=== PATIENT | male | born 1965 | race American Indian/Alaskan Native ===

== ENCOUNTER 2017-05-14 11:25 | Emergency (ER) | payer OTHER ==
[2017-05-14 11:26] VITALS: BMI 25.7
[2017-05-14 11:36] VITALS: RESP 20; TEMP 100.6
--- NOTE | 2017-05-14 11:39 | C.PDOC ---
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 LAST DOSE WAS 3 DAYS AGO. PENDING PMD FU 05/16. 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 NO ACTIVE PSYCHOSIS, INTOX Time Seen by Provider: 05/14/17 11:38 Chief Complaint (Nursing): Anxiety History Per: Patient History/Exam Limitations: no limitations Current Symptoms Are (Timing): Still Present Past Medical History Reviewed: Historical Data, Nursing Documentation, Vital Signs Vital Signs: Last Vital Signs Temp 100.6 F H 05/14/17 11:29 Pulse 81 05/14/17 12:08 Resp 20 05/14/17 12:08 BP 143/89 05/14/17 12:08 Pulse Ox 100 05/14/17 12:08 - Medical History PMH: Anxiety Surgical History: Hernia Repair - [facility] Procedures INJECT/INFUSE NEC (10/10/13) Family History: States: No Known Family Hx - Social History Hx Tobacco Use: Yes (1/2 PK/DAY) Hx Alcohol Use: Yes Hx Substance Use: No - Immunization History Hx Tetanus Toxoid Vaccination: No Hx Influenza Vaccination: Yes (09/2016) Hx Pneumococcal Vaccination: No Review Of Systems Except As Marked, All Systems Reviewed And Found Negative. 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 NO ACTIVE PSYCHOSIS, INTOX) Skin: Warm, Dry, No Rash Eye(s): bilateral: Normal Inspection Lips: Normal Appearing Neck: Normal ROM Cardiovascular: Rhythm Regular, No Murmur Respiratory: Normal Breath Sounds, No Accessory Muscle Use Extremity: Normal ROM Neurological/Psych: Oriented x3 ED Course And Treatment O2 Sat by Pulse Oximetry: 99 Progress - Re-Evaluation Re-evaluation Note: 05/14/17 11:39 SP CRISIS SEEMA EVAL. PT CLEARED FOR OUTPT - Data Reviewed Data Reviewed: Old records Disposition Counseled Patient/Family Regarding: Diagnosis, Need For Followup, Rx Given - Disposition Referrals: YOUR,PMD [Other] Disposition: HOME/ ROUTINE Disposition Time: 11:50 Condition: IMPROVED Prescriptions: ALPRAZolam [Xanax] 0.25 mg PO Q6 PRN #2 tab PRN Reason: Anxiety Instructions: Medicine Refill (ED) Forms: [employer] (Micronesian) - Clinical Impression Clinical Impression: Anxiety, Medication refill - Scribe Statement The provider has reviewed the documentation as recorded by the Scribe (Kemar Yost) All medical record entries made by the Scribe were at my direction and personally dictated by me. I have reviewed the chart and agree that the record accurately reflects my personal performance of the history, physical exam, medical decision making, and the department course for this patient. I have also personally directed, reviewed, and agree with the discharge instructions and disposition.
[2017-05-14 12:10] VITALS: BP 143/89; PULSE 81
[2017-05-14 12:32] VITALS: O2SAT 99
== END 2017-05-14 12:10 | disposition home or self-care (01) ==
LOC: C.ER 11:25
DX: F41.9 Anxiety disorder, unspecified (principal); Z76.0 Encounter for issue of repeat prescription

== ENCOUNTER 2017-06-25 06:12 | Emergency (ER) | payer OTHER ==
[2017-06-25 06:12] VITALS: BMI 25.7
--- NOTE | 2017-06-25 06:27 | C.PDOC ---
Chief Complaint (Nursing): Abnormal Skin Integrity Past Medical History Vital Signs: Last Vital Signs Temp 98.6 F 06/25/17 06:21 Pulse 93 H 06/25/17 06:21 Resp 20 06/25/17 06:21 BP 158/89 H 06/25/17 06:21 Pulse Ox 97 06/25/17 06:21 - Medical History PMH: Anxiety Surgical History: Hernia Repair - [facility] Procedures INJECT/INFUSE NEC (10/10/13) Family History: States: Unknown Family Hx - Social History Hx Tobacco Use: Yes (1/2 PK/DAY) Hx Alcohol Use: Yes Hx Substance Use: No - Immunization History Hx Tetanus Toxoid Vaccination: No Hx Influenza Vaccination: Yes (09/2016) Hx Pneumococcal Vaccination: No ED Course And Treatment O2 Sat by Pulse Oximetry: 97 Disposition - Disposition
[2017-06-25 06:30] VITALS: BP 158/89; PULSE 93; RESP 20; TEMP 98.6; O2SAT 97
[2017-06-25] MEDS ORDERED: DiphenhydrAMINE 50 mg/ml Inj IM STA (07:16)
--- NOTE | 2017-06-25 07:19 | C.PDOC ---
History Of Present Illness 52 yo male c/o itchy rash for 1 week. Pt notes "it feels like something is crawling under my skin." States that he lives with his aunt who does not have the rash. No known allergens. No difficulty breathing, no difficulty swallowing , no throat/tongue/lip swelling. No h/o similar symptoms. Has not tried any medication. Time Seen by Provider: 06/25/17 06:58 Chief Complaint (Nursing): Abnormal Skin Integrity History Per: Patient History/Exam Limitations: no limitations Onset/Duration Of Symptoms: Days Current Symptoms Are (Timing): Still Present Past Medical History Vital Signs: Last Vital Signs Temp 98.6 F 06/25/17 06:21 Pulse 93 H 06/25/17 06:21 Resp 20 06/25/17 06:21 BP 158/89 H 06/25/17 06:21 Pulse Ox 97 06/25/17 07:19 - Medical History PMH: Anxiety Surgical History: Hernia Repair - [facility] Procedures INJECT/INFUSE NEC (10/10/13) Family History: States: Unknown Family Hx - Social History Hx Tobacco Use: Yes (1/2 PK/DAY) Hx Alcohol Use: Yes Hx Substance Use: No - Immunization History Hx Tetanus Toxoid Vaccination: No Hx Influenza Vaccination: Yes (09/2016) Hx Pneumococcal Vaccination: No Review Of Systems Except As Marked, All Systems Reviewed And Found Negative. Constitutional: Negative for: Fever ENT: Negative for: Mouth Swelling, Throat Swelling Cardiovascular: Negative for: Chest Pain Respiratory: Negative for: Cough, Shortness of Breath Skin: Positive for: Rash Physical Exam - Physical Exam Appears: Well, Non-toxic, No Acute Distress Skin: Warm, Dry, Rash ((+) diffuse bit like papules in different healing stages and scabbing, no urticaria, no vesicles, no discharge, no increased warmth ) Head: Atraumatic, Normacephalic Eye(s): bilateral: Normal Inspection, PERRL, EOMI Nose: Normal Oral Mucosa: Moist Throat: Normal, No Erythema, No Exudate Neck: Normal, Normal ROM, Supple Chest: Symmetrical Cardiovascular: Rhythm Regular Respiratory: Normal Breath Sounds Gastrointestinal/Abdominal: Normal Exam Back: Normal Inspection Extremity: Normal ROM Neurological/Psych: Oriented x3, Normal Speech ED Course And Treatment O2 Sat by Pulse Oximetry: 97 Disposition - Disposition Disposition: HOME/ ROUTINE Disposition Time: 07:17 Condition: STABLE Additional Instructions: Follow up with your primary medical doctor or clinic in 2-5 days for further evaluation. Take medications as prescribed. Return to the emergency department at any time if symptoms persist or worsen. Prescriptions: DiphenhydrAMINE [Benadryl] 25 mg PO Q6 #20 cap Permethrin 5% [Permethrin 5% Cream] 1 applic TOP ONCE #1 tube Instructions: Acute Rash (ED) Forms: [employer] (Divehi) - Clinical Impression Clinical Impression: Rash
[2017-06-25] MEDS ORDERED: DiphenhydrAMINE 50 mg/ml Inj ONE (07:33)
== END 2017-06-25 07:38 | disposition home or self-care (01) ==
LOC: C.ER 06:12
DX: R21 Rash and other nonspecific skin eruption (principal)
CPT/HCPCS: 96372; 99283; J1200

== ENCOUNTER 2017-09-02 23:43 | Emergency (ER) | payer OTHER ==
[2017-09-02 23:44] VITALS: BMI 25.7
[2017-09-03 00:09] VITALS: BP 130/79; PULSE 105; RESP 20; TEMP 98.4; O2SAT 97
--- NOTE | 2017-09-03 00:28 | C.PDOC ---
History Of Present Illness 52 year old male is brought to the ED via EMS c/o back, shoulder, and ankle pain. Upon arrival to the ED patient is requesting food and refused to answer any other questions. Patient denies weakness, numbness, incontinence, saddle anesthesia, neck pain, headache. Time Seen by Provider: 09/03/17 00:17 Chief Complaint (Nursing): Back Pain History Per: Patient, EMS History/Exam Limitations: no limitations Onset/Duration Of Symptoms: Hrs Current Symptoms Are (Timing): Still Present Quality Of Discomfort: "Pain" Previous Symptoms: Back Pain Associated Symptoms: None Exacerbating Factor(s): Nothing Recent travel outside of the [place]: No Additional History Per: Patient Past Medical History Reviewed: Historical Data, Nursing Documentation, Vital Signs Vital Signs: Last Vital Signs Temp 98.4 F 09/03/17 00:03 Pulse 105 H 09/03/17 00:03 Resp 20 09/03/17 00:03 BP 130/79 09/03/17 00:03 Pulse Ox 97 09/03/17 02:19 - Medical History PMH: Anxiety Surgical History: Hernia Repair - [facility] Procedures INJECT/INFUSE NEC (10/10/13) Family History: States: Unknown Family Hx - Social History Hx Tobacco Use: Yes (1/2 PK/DAY) Hx Alcohol Use: Yes Hx Substance Use: No - Immunization History Hx Tetanus Toxoid Vaccination: No Hx Influenza Vaccination: Yes (09/2016) Hx Pneumococcal Vaccination: No Review Of Systems Constitutional: Negative for: Fever, Chills Cardiovascular: Negative for: Chest Pain, Palpitations Respiratory: Negative for: Cough, Shortness of Breath Gastrointestinal: Negative for: Nausea, Vomiting, Abdominal Pain Musculoskeletal: Positive for: Shoulder Pain, Back Pain, Leg Pain Skin: Negative for: Rash Neurological: Negative for: Weakness, Numbness, Headache Physical Exam - Physical Exam Appears: Non-toxic, No Acute Distress Skin: Normal Color, Warm, Dry Head: Atraumatic, Normacephalic Nose: No Discharge, No Deformity Oral Mucosa: Moist Neck: Normal ROM, Supple Chest: Symmetrical Cardiovascular: Rhythm Regular, No Murmur Respiratory: Normal Breath Sounds, No Rales, No Rhonchi, No Wheezing Gastrointestinal/Abdominal: Soft, No Tenderness Back: Normal Inspection, No CVA Tenderness, No Vertebral Tenderness Extremity: Normal ROM, No Pedal Edema, No Calf Tenderness, No Deformity, No Swelling Neurological/Psych: Oriented x3, Normal Speech, Normal Cognition Gait: Steady ED Course And Treatment O2 Sat by Pulse Oximetry: 97 (On RA) Pulse Ox Interpretation: Normal Disposition Counseled Patient/Family Regarding: Diagnosis, Need For Followup - Disposition Referrals: [facility] [Outside] Disposition: HOME/ ROUTINE Disposition Time: 00:26 Condition: STABLE Additional Instructions: Please follow up in clinic Return if needed for any emergencies Prescriptions: Ibuprofen [Motrin] 1 tab PO TID PRN #20 tab PRN Reason: Pain Instructions: Musculoskeletal Pain (ED) Forms: [employer] (Slovenian) - Clinical Impression Clinical Impression: Musculoskeletal pain - PA / 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 - Scribe Statement The provider has reviewed the documentation as recorded by the Scribe Amado Yap All medical record entries made by the Scribe were at my direction and personally dictated by me. I have reviewed the chart and agree that the record accurately reflects my personal performance of the history, physical exam, medical decision making, and the department course for this patient. I have also personally directed, reviewed, and agree with the discharge instructions and disposition.
== END 2017-09-03 00:42 | disposition home or self-care (01) ==
LOC: C.ER 23:43
DX: M79.1 Myalgia (principal); F17.210 Nicotine dependence, cigarettes, uncomplicated

== ENCOUNTER 2017-10-07 17:51 | Emergency (ER) | payer SELFPAY ==
[2017-10-07 17:52] VITALS: BMI 25.7
--- NOTE | 2017-10-07 20:51 | C.PDOC ---
History Of Present Illness 52 y/o male presents to ED by EMS for public intoxication. Pt was threatening staff. Pt was has had many similar prior evaluations. Denies any physical complaints. (Song Guo) History Per: Patient History/Exam Limitations: no limitations Onset/Duration Of Symptoms: Hrs Current Symptoms Are (Timing): Still Present Suicide/Self Injury Attempted (Context): None Modifying Factor(s): Alcohol Associated Symptoms: Anger. denies: Suicidal Thoughts, Suicidal Plan Involuntary Hold By: None Recent travel outside of the [place]: No Time Seen by Provider: 10/07/17 18:41 Chief Complaint (Nursing): Substance Abuse Past Medical History Reviewed: Historical Data, Nursing Documentation, Vital Signs - Medical History PMH: Anxiety Surgical History: Hernia Repair Family History: States: Unknown Family Hx - Social History Hx Tobacco Use: Yes (1/2 PK/DAY) Hx Alcohol Use: Yes Hx Substance Use: No - Immunization History Hx Tetanus Toxoid Vaccination: No Hx Influenza Vaccination: Yes (09/2016) Hx Pneumococcal Vaccination: No Vital Signs: Last Vital Signs Temp 99.1 F 10/08/17 05:03 Pulse 88 10/08/17 05:03 Resp 18 10/08/17 05:03 BP 121/76 10/08/17 05:03 Pulse Ox 96 10/08/17 05:03 - [facility] Procedures INJECT/INFUSE NEC (10/10/13) Review Of Systems Constitutional: Negative for: Fever Skin: Negative for: Rash, Bruising Neurological: Negative for: Weakness, Numbness Psych: Negative for: Suicidal ideation Physical Exam - Physical Exam Appears: Well, Non-toxic, Other (ETOH on breath) Skin: Normal Color, Warm, Dry Head: Atraumatic, Normacephalic Eye(s): bilateral: Normal Inspection Oral Mucosa: Moist Neck: Supple Chest: Symmetrical, No Tenderness Cardiovascular: Rhythm Regular Respiratory: Normal Breath Sounds, No Decreased Breath Sounds, No Rales, No Rhonchi, No Wheezing Gastrointestinal/Abdominal: Soft, No Tenderness, No Distention Extremity: Normal ROM Extremity: Bilateral: Normal Color And Temperature, Normal ROM Neurological/Psych: Oriented x3, Normal Speech, Normal Cognition ED Course And Treatment O2 Sat by Pulse Oximetry: 98 (RA ) Pulse Ox Interpretation: Normal Reevaluation Time: 01:00 Reassessment Condition: Improved Medical Decision Making Medical Decision Making: Pt was difficult to redirect. Offered 4 point restraints but patient declined and became compliant. 0100: typical alcohol intox, stable, calm signed over to overnight MD (Song Guo) Disposition - Disposition Disposition Time: 01:00 - Disposition Referrals: Alcoholics Anonymous [Outside] Disposition: HOME/ ROUTINE Condition: GOOD Instructions: Abuse of Alcohol (ED) Forms: [employer] (Bengali) Print Language: POLISH - Clinical Impression Clinical Impression: Alcohol abuse - Scribe Statement The provider has reviewed the documentation as recorded by the Scribe - Scribe Statement Megan Kebede All medical record entries made by the Scribe were at my direction and personally dictated by me. I have reviewed the chart and agree that the record accurately reflects my personal performance of the history, physical exam, medical decision making, and the department course for this patient. I have also personally directed, reviewed, and agree with the discharge instructions and disposition. (Song Guo) Physician Patient Turnover Patient Signed Over To: Mary Kemp Handoff Comments: dispo in AM when sober
[2017-10-08 05:04] VITALS: BP 121/76; PULSE 88; RESP 18; TEMP 99.1; O2SAT 96
== END 2017-10-08 05:36 | disposition home or self-care (01) ==
LOC: C.ER 17:51
DX: F10.10 Alcohol abuse, uncomplicated (principal); Y90.9 Presence of alcohol in blood, level not specified

== ENCOUNTER 2018-04-28 06:03 | Emergency (ER) | payer MEDICAID, OTHER ==
[2018-04-28 06:04] VITALS: BMI 24.3
[2018-04-28 06:16] VITALS: O2SAT 100
--- NOTE | 2018-04-28 06:16 | C.PDOC ---
History Of Present Illness Patient brought in via EMS after being found intoxicated in public. Denies physical complaints at this time. Time Seen by Provider: 04/28/18 06:16 Chief Complaint (Nursing): Substance Abuse History Per: Patient, EMS History/Exam Limitations: no limitations Onset/Duration Of Symptoms: Hrs Current Symptoms Are (Timing): Still Present Suicide/Self Injury Attempted (Context): None Modifying Factor(s): Alcohol Severity: None Pain Scale Rating Of: 0 Associated Symptoms: denies: Depression, Suicidal Thoughts Recent travel outside of the [place]: No Past Medical History Reviewed: Historical Data, Nursing Documentation, Vital Signs Vital Signs: Last Vital Signs Temp 97.6 F 04/28/18 06:11 Pulse 97 H 04/28/18 06:11 Resp 20 04/28/18 06:11 BP 106/74 04/28/18 06:11 Pulse Ox 100 04/28/18 06:26 - Medical History PMH: Anxiety Denies: HIV, HTN, Seizures, Sexually Transmitted Disease Surgical History: Hernia Repair - [facility] Procedures INJECT/INFUSE NEC (10/10/13) Family History: States: No Known Family Hx - Social History Hx Tobacco Use: Yes (1/2 PK/DAY) Hx Alcohol Use: Yes (vodka) Hx Substance Use: No - Immunization History Hx Tetanus Toxoid Vaccination: No Hx Influenza Vaccination: Yes (09/2016) Hx Pneumococcal Vaccination: No Review Of Systems Constitutional: Negative for: Fever, Chills Cardiovascular: Negative for: Chest Pain, Palpitations Respiratory: Negative for: Cough, Shortness of Breath Gastrointestinal: Negative for: Nausea, Vomiting Physical Exam - Physical Exam Appears: Non-toxic, Other (ETOH on breath, no sign of injury) Skin: Warm, Dry Head: Normacephalic Oral Mucosa: Moist Chest: Symmetrical, No Tenderness Cardiovascular: Rhythm Regular Respiratory: No Rales, No Rhonchi, No Wheezing Gastrointestinal/Abdominal: Soft, No Tenderness Neurological/Psych: Oriented x3 ED Course And Treatment O2 Sat by Pulse Oximetry: 100 Disposition Counseled Patient/Family Regarding: Studies Performed, Diagnosis - Disposition Disposition Time: 06:16 Condition: FAIR Forms: [facility] (Kiswahili) - Clinical Impression Clinical Impression: Alcohol intoxication - Scribe Statement The provider has reviewed the documentation as recorded by the Scribe Ángel Montgomery All medical record entries made by the Scribe were at my direction and personally dictated by me. I have reviewed the chart and agree that the record accurately reflects my personal performance of the history, physical exam, medical decision making, and the department course for this patient. I have also personally directed, reviewed, and agree with the discharge instructions and disposition. Physician Patient Turnover Patient Signed Over To: Audra Maldonado Handoff Comments: Pending sobriety and re-evaluation
[2018-04-28 10:40] VITALS: BP 104/71; PULSE 78; RESP 18; TEMP 98.7
== END 2018-04-28 11:38 | disposition home or self-care (01) ==
LOC: C.ER 06:03
DX: F10.129 Alcohol abuse with intoxication, unspecified (principal); F17.210 Nicotine dependence, cigarettes, uncomplicated

== ENCOUNTER 2018-05-10 01:20 | Emergency (ER) | payer MEDICAID, OTHER ==
[2018-05-10 01:20] VITALS: BMI 24.3
[2018-05-10 01:29] VITALS: BP 123/82; RESP 16; TEMP 97.5
--- NOTE | 2018-05-10 02:10 | C.PDOC ---
History Of Present Illness 52 year old male is presents to the ED intoxicated. Patient admits to drinking alcohol tonight. Patient denies Si/HI, hallucinations, CP, SOB, other drugs abuse. Time Seen by Provider: 05/10/18 01:34 Chief Complaint (Nursing): Substance Abuse History Per: Patient History/Exam Limitations: intoxication Onset/Duration Of Symptoms: Hrs Current Symptoms Are (Timing): Still Present Modifying Factor(s): Alcohol Associated Symptoms: denies: Depression, Suicidal Thoughts, Suicidal Plan Recent travel outside of the [place]: No Additional History Per: Patient Past Medical History Reviewed: Historical Data, Nursing Documentation, Vital Signs Vital Signs: Last Vital Signs Temp 97.5 F L 05/10/18 01:25 Pulse 104 H 05/10/18 01:25 Resp 16 05/10/18 01:25 BP 123/82 05/10/18 01:25 Pulse Ox 96 05/10/18 02:11 - Medical History PMH: Anxiety Denies: HIV, HTN, Seizures, Sexually Transmitted Disease Surgical History: Hernia Repair - [facility] Procedures INJECT/INFUSE NEC (10/10/13) Family History: States: Unknown Family Hx - Social History Hx Tobacco Use: Yes (1/2 PK/DAY) Hx Alcohol Use: Yes Hx Substance Use: No - Immunization History Hx Tetanus Toxoid Vaccination: No Hx Influenza Vaccination: Yes (09/2016) Hx Pneumococcal Vaccination: No Review Of Systems Constitutional: Negative for: Fever, Chills Cardiovascular: Negative for: Chest Pain Respiratory: Negative for: Shortness of Breath Gastrointestinal: Negative for: Nausea, Vomiting Psych: Negative for: Depression, Suicidal ideation Physical Exam - Physical Exam Appears: Non-toxic, No Acute Distress Skin: Normal Color, Warm, Dry Head: Atraumatic, Normacephalic Eye(s): bilateral: Normal Inspection Neck: Normal ROM, Supple Chest: Symmetrical Cardiovascular: Rhythm Regular Respiratory: Normal Breath Sounds, No Rales, No Rhonchi, No Wheezing Gastrointestinal/Abdominal: Soft, No Tenderness, No Guarding, No Rebound Extremity: Normal ROM, No Tenderness, No Swelling Neurological/Psych: Oriented x3, Normal Speech Gait: Steady ED Course And Treatment O2 Sat by Pulse Oximetry: 96 (ON RA) Pulse Ox Interpretation: Normal Medical Decision Making Medical Decision Making: On re-exam, the patient reports improvement of symptoms. Lungs are CTA, heart is RRR, abdomen is soft, non-tender and tolerating PO well. Ambulatory in the ED with steady gait. Follow up with the medical doctor within 1-2 days. Return if worsened. Disposition - Disposition Disposition: HOME/ ROUTINE Disposition Time: 05:13 Condition: GOOD Additional Instructions: Follow up with the medical doctor within 1-2 days. Return if worsened. Instructions: Alcohol Use - When Is Drinking a Problem? Forms: [employer] (Bangladeshi) - Clinical Impression Clinical Impression: Alcohol abuse - PA / DELIVERY ANALYST / Resident Statement MD/DO has reviewed & agrees with the documentation as recorded. - Scribe Statement The provider has reviewed the documentation as recorded by the Scribe Amado Yap All medical record entries made by the Scribe were at my direction and personally dictated by me. I have reviewed the chart and agree that the record accurately reflects my personal performance of the history, physical exam, medical decision making, and the department course for this patient. I have also personally directed, reviewed, and agree with the discharge instructions and disposition.
[2018-05-10 05:38] VITALS: PULSE 70
[2018-05-11 05:12] VITALS: O2SAT 96
== END 2018-05-10 05:37 | disposition home or self-care (01) ==
LOC: C.ER 01:20
DX: F10.10 Alcohol abuse, uncomplicated (principal); Y90.9 Presence of alcohol in blood, level not specified